=== PATIENT | male | born 1960 | race Caucasian/White ===

== ENCOUNTER 2017-06-10 15:34 | Emergency (ER) | payer OTHER ==
[~2017-06-10] VITALS: Ht 170.2 cm; Wt 103.0 kg
[2017-06-10 15:35] VITALS: BP 178/88; PULSE 75; RESP 14; TEMP 99.6; O2SAT 99
[2017-06-10] MEDS ORDERED: SIMV40TA PO (15:48)
[2017-06-10] MEDS ORDERED: SOTA80TA PO (15:48)
[2017-06-10] MEDS ORDERED: ASPI-516 CHEW (15:48)
[2017-06-10] MEDS ORDERED: CYCL10TA PO (15:48)
[2017-06-10] MEDS ORDERED: TRAM50TA PO (15:48)
[2017-06-10] MEDS ORDERED: GABA600T PO (15:48)
[2017-06-10] MEDS ORDERED: NITR1SUB3 SL (15:48)
[2017-06-10] MEDS ORDERED: PLAV75TA29 PO (15:48)
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
[2017-06-10] MEDS ORDERED: KETOROLAC TROMETHAMINE 60 MG/2 ML (IM) VIAL IM ONE (16:15)
== END 2017-06-10 16:53 | disposition home or self-care (01) ==
LOC: NEPK 15:34
DX: S39.012A Strain of muscle, fascia and tendon of lower back, initial encounter (principal); V29.40XA Motorcycle driver injured in collision with unspecified motor vehicles in traffic accident, initial encounter; Z79.899 Other long term (current) drug therapy; Z79.02 Long term (current) use of antithrombotics/antiplatelets; Z79.82 Long term (current) use of aspirin
CPT/HCPCS: 96374; 99284; J1885